=== PATIENT | female | born 1955 | race Hispanic/Latino ===

== ENCOUNTER 2019-08-19 12:50 | Emergency (ER) | payer OTHER ==
[2019-08-19] MEDS ORDERED: SIMETHICONE 80 MG TAB.CHEW ONE (13:16)
[2019-08-19] MEDS ORDERED: ONDANSETRON HCL 4 MG/2 ML VIAL ONE (13:16)
[2019-08-19] MEDS ORDERED: SODIUM CHLORIDE 0.9% 1000ML 1,000 ML IV ONE (13:17)
[2019-08-19 13:27] LABS: BASOPHILS % (AUTO) 0.2 % (0.0-5.0); EOSINOPHILS % (AUTO) 0.6 % (0.0-8.0); HEMATOCRIT 39.7 % (36-48); LYMPHOCYTES % (AUTO) 7.1 % (21.0-51.0); MEAN CORPUSCULAR HGB CONC 34.2 g/dL (32.0-36.0); MEAN CORPUSCULAR VOLUME 87.6 fL (79-99); NEUTROPHILS % (AUTO) 86.1 % (40.0-77.0); PLATELET COUNT (AUTO) 120 K/uL (130-400); RED BLOOD CELL COUNT(AUTO) 4.53 MIL/uL (4.00-5.50); RED CELL DISTRIBUTION WIDTH 13.8 % (11.0-15.5); WHITE BLOOD COUNT (AUTO) 11.3 K/uL (4.8-10.8)
[2019-08-19 13:40] LABS: CREATININE 0.9 mg/dL (0.5-1.5); POTASSIUM 3.3 mmol/L (3.5-5.1)
[2019-08-19 13:46] LABS: ALBUMIN 3.7 g/dL (3.5-5.0); BILIRUBIN,TOTAL 0.7 mg/dL (0.2-1.0); TOTAL PROTEIN, SERUM 6.9 g/dL (6.0-8.3)
[2019-08-19 14:03] LABS: PLATELET MORPHOLOGY COMMENT SLIGHTLY DECREASED
[2019-08-19] MEDS ORDERED: MAGNESIUM OXIDE 400 MG TABLET PO ONE (14:04)
[2019-08-19] MEDS ORDERED: POTASSIUM CHLORIDE 20 MEQ ERTAB PO ONE (14:05)
== END 2019-08-19 15:03 | disposition home or self-care (01) ==
LOC: EDH 12:50
DX: R11.2 Nausea with vomiting, unspecified (principal); R19.7 Diarrhea, unspecified; I10 Essential (primary) hypertension
CPT/HCPCS: 36415; 80053; 83690; 85025; 93005; 96361; 96374; 99283; J2405; J7030

== ENCOUNTER → 2019-09-14 | Outpatient (CLI) | payer OTHER ==
[2019-09-14 15:03] LABS: ALBUMIN 3.8 g/dL (3.5-5.0); BILIRUBIN,TOTAL 0.5 mg/dL (0.2-1.0); CREATININE 0.9 mg/dL (0.5-1.5); POTASSIUM 4.2 mmol/L (3.5-5.1); TOTAL PROTEIN, SERUM 7.3 g/dL (6.0-8.3)
== END | disposition home or self-care (01) ==
LOC: LAB 13:52
PROVIDERS: ATTEND Internal Medicine
DX: D69.6 Thrombocytopenia, unspecified (principal)
CPT/HCPCS: 36415; 80053

== ENCOUNTER → 2019-09-19 | Day surgery (SDC) | payer OTHER ==
[~2019-09-19] MED LIST: ASCO1CAP5 PO; ICOS1CAP PO; LORA10TA7 PO; MAGN500C15 PO; MV-M1TAB20 PO; POTA99TA21 PO; SODIUM CHLORIDE 0.9% 1000ML 1,000 ML IV ONE; TURM500C9 PO; UBID50TA3 PO; VITA1TAB39 PO
== END | disposition home or self-care (01) ==
LOC: RAH 09:59 → EDSTATUS 10:00
PROVIDERS: ATTEND Internal Medicine
DX: D69.6 Thrombocytopenia, unspecified (principal); K76.0 Fatty (change of) liver, not elsewhere classified; K76.89 Other specified diseases of liver
CPT/HCPCS: 76700; J7030

== ENCOUNTER 2019-09-20 08:34 | Day surgery (SDC) | payer OTHER ==
[~2019-09-20] VITALS: Ht 149.9 cm; Wt 75.3 kg
[2019-09-20] MEDS ORDERED: PROPOFOL 10 MG/ML 20ML VIAL IV ONE (10:23)
[2019-09-20] MEDS ORDERED: PHENYLEPHRINE HCL 10 MG/ML 1ML VIAL IV ONE (10:54)
[2019-09-20] MEDS ORDERED: TURM500C9 PO (10:56)
[2019-09-20] MEDS ORDERED: LORA10TA7 PO (10:56)
[2019-09-20] MEDS ORDERED: MV-M1TAB20 PO (10:56)
[2019-09-20] MEDS ORDERED: POTA99TA21 PO (10:56)
[2019-09-20] MEDS ORDERED: UBID50TA3 PO (10:56)
[2019-09-20] MEDS ORDERED: ASCO1CAP5 PO (10:56)
[2019-09-20] MEDS ORDERED: ICOS1CAP PO (10:56)
[2019-09-20] MEDS ORDERED: VITA1TAB39 PO (10:56)
[2019-09-20] MEDS ORDERED: MAGN500C15 PO (10:56)
[2019-09-20 11:13] VITALS: BP 102/49
[2019-09-20 11:18] VITALS: BP 109/53
[2019-09-20] MEDS ORDERED: SODIUM CHLORIDE 0.9% 1000ML 1,000 ML IV ONE (11:19)
[2019-09-20 11:23] VITALS: BP 105/44
[2019-09-20 11:28] VITALS: BP 121/74
== END 2019-09-20 11:41 | disposition home or self-care (01) ==
LOC: DAH 08:34 → ENDO 08:34
PROVIDERS: ATTEND Internal Medicine
DX: Z12.11 Encounter for screening for malignant neoplasm of colon (principal); K57.30 Diverticulosis of large intestine without perforation or abscess without bleeding; K64.0 First degree hemorrhoids; I10 Essential (primary) hypertension; D69.6 Thrombocytopenia, unspecified; F41.9 Anxiety disorder, unspecified; Z79.899 Other long term (current) drug therapy; Z82.49 Family history of ischemic heart disease and other diseases of the circulatory system; Z83.3 Family history of diabetes mellitus; Z82.3 Family history of stroke
CPT/HCPCS: A4215; A4221; A4222; A4223; A4606; A4615; A4663; G0121; J2370; J2704; J7030; 45378